=== PATIENT | female | born 1950 | race Caucasian/White ===

== ENCOUNTER 2022-11-10 20:54 | Emergency (ER) | payer MEDICARE, SELFPAY ==
--- NOTE | 2022-11-10 20:55 | XRR_ITS ---
PROCEDURE INFORMATION: Exam: XR Chest Exam date and time: 11/10/2022 8:18 PM Age: 72 years old Clinical indication: Pain; Chest pressure; Additional info: Cp TECHNIQUE: Imaging protocol: Radiologic exam of the chest. Views: 1 view. COMPARISON: CR XR chest 1V [id number] 10/19/2016 12:03 AM FINDINGS: Lungs: Unremarkable. No consolidation. Pleural spaces: Unremarkable. No pleural effusion. No pneumothorax. Heart/Mediastinum: Unremarkable. No cardiomegaly. Bones/joints: Unremarkable. XR/XR chest 1V portable [id number] IMPRESSION: No acute findings.
--- NOTE | 2022-11-10 21:07 | ECG_ITS ---
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 Measurements Intervals [place] Rate: 68 P: 66 DC: 164 QRS: 32 QRSD: 86 T: 45 QT: 417 QTc: 444 Interpretive Statements SINUS RHYTHM WITH OCCASIONAL VENTRICULAR PREMATURE COMPLEXES Compared to ECG 10/19/2016 00:07:44 Ventricular premature complex(es) now present Sinus bradycardia no longer present Electronically Signed On 11-11-2022 4:16:29 CDT by Esther Britt M.D. [id number]
[2022-11-10 21:09] VITALS: BP 157/79; PULSE 66; RESP 14; TEMP 36.7; O2SAT 97; BMI 36.1
[2022-11-10 21:27] VITALS: BP 166/77; PULSE 65; RESP 20; O2SAT 97
[2022-11-10 21:32] LABS: Basophils # 0.1 10^3/uL (0.0-0.1); Basophils % 0.7 %; Eosinophils # 0.4 10^3/uL (0.0-0.8); Eosinophils % 2.8 %; Hematocrit 48.4 % (37.0-47.0); Hemoglobin 15.7 g/dL (11.5-15.3); Lymphocytes # 1.5 10^3/uL (0.8-4.8); Lymphocytes % 10.9 %; Mean Corpuscular HGB Conc 32.4 g/dL (30.0-36.0); Mean Corpuscular Hemoglobin 28.7 pg (28.0-34.0); Mean Corpuscular Volume 88.5 fl (81-99); Mean Platelet Volume 12.3 fL (7.4-10.4); Monocytes # 0.9 10^3/uL (0.2-0.9); Monocytes % 6.7 %; Neutrophils # 10.94 10^3/uL (1.8-7.7); Neutrophils % 78.3 %; Nucleated Red Blood Cells % 0 %; Platelet Count 274 10^3/cmm (130-400); Red Blood Count 5.47 10^6/uL (4.1-5.3); Red Cell Distribution Width 13.3 % (12.1-15.1)
[2022-11-10 21:44] LABS: INR 0.88 (0.8-1.2)
[2022-11-10 21:45] VITALS: BP 138/109; PULSE 59; RESP 25; O2SAT 94
[2022-11-10 21:48] LABS: Alanine Aminotransferase 15 U/L (0-33); Albumin Level 4.4 g/dL (3.5-5.2); Alkaline Phosphatase 130 U/L (35-105); Anion Gap 18.6 (5-19); Aspartate Amino Transferase 21 U/L (0-32); Blood Urea Nitrogen 12 mg/dL (8-23); Calcium 9.4 mg/dL (8.5-10.5); Carbon Dioxide 25 mmol/L (22-29); Chloride 102 mmol/L (98-107); Globulin 2.4 g/dL (1.3-4.6); Glucose 134 mg/dL (65-115); Lipase 32 U/L (13-60); Osmolality Calculated 294 mOsm/kg (285-295); Potassium 4.6 mmol/L (3.5-5.1); Sodium 141 mmol/L (136-145); Total Bilirubin 0.5 mg/dL (0.15-1.2); Total Protein 6.8 g/dL (6.6-8.7)
[2022-11-10 21:51] LABS: Troponin(5th) Baseline 15 ng/L (0-10)
[2022-11-10 21:56] LABS: Slide Review Slide Review Perform
[2022-11-10 22:18] VITALS: BP 155/77; PULSE 56; RESP 23; O2SAT 96
--- NOTE | 2022-11-10 22:55 | ECG_ITS ---
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 Measurements Intervals [place] Rate: 55 P: 27 [place]: 158 QRS: 29 QRSD: 86 T: 76 QT: 430 QTc: 413 Interpretive Statements SINUS BRADYCARDIA NONSPECIFIC T-WAVE ABNORMALITY Compared to ECG 11/10/2022 21:07:15 T-wave abnormality now present Sinus rhythm no longer present Ventricular premature complex(es) no longer present Electronically Signed On 11-11-2022 4:17:52 CDT by Esther Britt M.D. [id number]
[2022-11-10 23:13] VITALS: BP 153/61; PULSE 56; RESP 25; O2SAT 56
[2022-11-10 23:41] LABS: Troponin 5 2HR 22.77 ng/L (0-10)
[2022-11-10 23:44] LABS: Troponin 5 2HR Delta 7.77 ABS# (0-10)
--- NOTE | 2022-11-11 00:12 | W.ED.CHESTPA ---
HPI - Chest Pain General: Chief Complaint: Chest Pain Stated Complaint: Jaw Pain\Chest Pain Time Seen by Provider: 11/10/22 20:59 History of Present Illness: 72 yo female patient presents to ER with jaw pain and chest pressure that occured prior to arrival lasting 45 minutes. Pt was sitting in chair. Pt denies any chest pain at this time. Pt denies any SOB, n/v/ fever or cough or congestion. Pt states she has hx of a fib but had ablation and been NSR. Pt is not anticoagulated. pt has not had recent stress test. pt is a a current smoker with hx of HTN. Associated symptoms: Deny abdominal pain, diaphoresis, dyspnea, fever(s), nausea, palpitations, syncope or vomiting Review of Systems Const: Denies: fever(s), chills, body aches, change in appetite, change in weight, fatigue, malaise or diaphoresis Eyes: Denies: change in vision, blurry vision, blind spots, photophobia, eye discomfort, eye discharge, eye redness, floaters or seeing flashes ENMT: Denies: throat pain, uvular edema, enlarged tonsils, odynophagia, hoarseness, mouth pain, swelling of lips/tongue, oral sores, bleeding gums, dental pain, dry mouth, ear or mastoid pain, ear discharge, change in hearing, tinnitus, disequilibrium, nasal discharge, nasal congestion, post nasal drip or sinus pain Card: Denies: palpitations, irregular heart rhythm, edema, swelling of feet/ankles, lightheadedness, syncope, pre-syncope, dyspnea on exertion, orthopnea, leg pain with exertion or acrocyanosis Resp: Denies: dyspnea, productive cough, non-productive cough, wheezing, stridor, pain on inspiration, change in phlegm color, hemoptysis or chest congestion GI: Denies: abdominal pain, nausea, vomiting, hematemesis, dysphagia, diarrhea, constipation, GI cramping, change in bowel habits or rectal pain : Denies: flank pain, difficulty voiding, dysuria, urinary frequency, urinary urgency, urinary hesitancy or hematuria Musc: Denies: neck pain, back pain, extremity pain, extremity swelling, joint pain, joint swelling, joint redness, joint warmth or deformity Skin/Breast: Denies: rash, pruritus, erythema, sores, new lesions, changes in skin color or dry skin Neuro: Denies: headache(s), numbness in extremities, weakness in extremities, sensory changes, lack of coordination, difficulty walking, frequent falls, dizziness, vertigo, confusion, behavioral changes, Slurred speech present, difficulty communicating thoughts or seizure-like activity Psych: Denies: anxiety, depression, suicidal ideation or homicidal ideation Endo: Denies: polyuria, polydipsia, tired all the time, cold intolerance, excessive sweating, flushing, hot flashes or heat intolerance Norberto/Lymph: Denies: easy bruising, easy bleeding, petechiae, purpura, enlarged lymph nodes or tender lymph nodes All/Imm: Denies: urticaria, throat swelling, tongue swelling, facial swelling, acute wheezing or itchy eyes Physical Exam Const: COMMON NORMALS: no acute distress, average body habitus, patient oriented x3, no limitations, healthy appearing, alert and well nourished HENMT: COMMON NORMALS: normocephalic, atraumatic, hearing grossly normal bilaterally, external ears normal, EAC's normal, TM's normal bilaterally, Normal external nose present, Normal nasal mucous membranes and turbinates present, moist oral mucous membranes, oropharynx normal, dentition normal and gingiva normal HEAD & SCALP: normocephalic and atraumatic NOSE: Normal external nose present and Normal nasal mucous membranes and turbinates present EXTERNAL EAR: Yes external ears normal EXTERNAL AUDITORY CANAL: EAC's normal TYMPANIC MEMBRANE: TM's normal bilaterally THROAT: no uvular edema Eye: COMMON NORMALS: Equal, round and reactive pupils present and EOMs intact bilaterally PUPIL: Yes Equal, round and reactive pupils present Neck/C-Spine: COMMON NORMALS: full ROM, no lymphadenopathy and no JVD Chest: COMMONS NORMALS: normal inspection of the chest and normal palpation of entire chest wall Resp: COMMON NORMALS: normal respiratory effort, No retractions, No use of accessory muscles and clear to auscultation bilaterally AUSCULTATION: clear to auscultation bilaterally Cardio: COMMON NORMALS: no JVD, regular rate and regular rhythm RATE: regular rate RHYTHM: regular rhythm GI: COMMON NORMALS: Normal to inspection, nondistended, normoactive bowel sounds present, Soft to palpation and non-tender PALPATION: Yes Soft to palpation : COMMON NORMALS: Yes no CVA tenderness BLADDER/KIDNEY EXAM: Yes no CVA tenderness Back/Pelvis: COMMON NORMALS: no CVA tenderness, thoracic and lumbar spine normal to inspection, no thoracic nor lumbar tenderness and thoraco-lumbar ROM normal Extremity: COMMON NORMALS: normal to inspection and full ROM Neuro: COMMON NORMALS: patient oriented x3, CN's II-XII intact bilaterally, moves all extremities, no focal motor deficits and no sensory deficits noted SENSORIUM/ORIENTATION: Yes alert Psych: COMMON NORMALS: mental status grossly normal, Normal thought process present, cooperative, normal affect, speech normal, activity/motor behavior normal, denies homicidal ideation and denies suicidal ideation SPEECH: Yes normal speech THOUGHT PROCESS: Normal thought process present Skin: COMMON NORMALS: no rashes or lesions noted GENERAL SKIN EXAM: no rashes or lesions noted and elasticity normal Course Vital Signs: Vital signs: Vital Signs Temperature 98.1 F 11/10/22 21:09 Pulse Rate 56 L 11/10/22 23:13 Respiratory Rate 25 H 11/10/22 23:13 Blood Pressure 153/61 11/10/22 23:13 Pulse Oximetry 56 L 11/10/22 23:13 Oxygen Delivery Me thod Room Air 11/10/22 23:13 MDM - Chest Pain Medical Decision Making Patient is well appearing non toxic and in no acute distress. 72 yo female patient presents to ER with jaw pain and chest pressure that occured prior to arrival lasting 45 minutes. Pt was sitting in chair. Pt denies any chest pain at this time. Pt denies any SOB, n/ v/ fever or cough or congestion. Pt states she has hx of a fib but had ablation and been NSR. Pt is not anticoagulated. pt has not had recent stress test. pt is a a current smoker with hx of HTN. Labs do not reveal any concrning findings. Delta trop is WNL EKG reveals no st elevation or depression noted. Pt is in SR. Chest xray is with no acute findings. Given patients age and risk factors I did recommend chest pain obs admission. Pt states she does not want to come in. Pt states she wants to go home. I explained the risk to aptient and she understands and states she sees her PCP tomorrow and will have hi schedule her a stress test. I offered to schedule outpatient stress test and patient states [facility]is [facility] and has care there and wants her pcp to set this up. I discussed close return precautions with patient. 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 Lab Data 11/10/22 21:22 11/10/22 21:22 Radiology Impressions Chest X-Ray 11/10/22 20:55 IMPRESSION: No acute findings. Laboratory Results WBC 14.0 10^3/uL (4.0-10.0) H 11/10/22 21:22 RBC 5.47 10^6/uL (4.1-5.3) H 11/10/22 21:22 Hgb 15.7 g/dL (11.5-15.3) H 11/10/22 21:22 Hct 48.4 % (37.0-47.0) H 11/10/22 21:22 MCV 88.5 fl (81-99) 11/10/22 21:22 MCH 28.7 pg (28.0-34.0) 11/10/22 21:22 MCHC 32.4 g/dL (30.0-36.0) 11/10/22 21:22 RDW 13.3 % (12.1-15.1) 11/10/22 21:22 Plt Count 274 10^3/cmm (130-400) 11/10/22 21:22 MPV 12.3 fL (7.4-10.4) H 11/10/22 21:22 Neut % (Auto) 78.3 % 11/10/22 21:22 Lymph % (Auto) 10.9 % 11/10/22 21:22 [place] % (Auto) 6.7 % 11/10/22 21:22 Eos % (Auto) 2.8 % 11/10/22 21:22 Baso % (Auto) 0.7 % 11/10/22 21:22 Neut # (Auto) 10.94 10^3/uL (1.8-7.7) H 11/10/22 21:22 Lymph # (Auto) 1.5 10^3/uL (0.8-4.8) 11/10/22 21:22 [place] # (Auto) 0.9 10^3/uL (0.2-0.9) 11/10/22 21:22 Eos # (Auto) 0.4 10^3/uL (0.0-0.8) 11/10/22 21:22 Baso # (Auto) 0.1 10^3/uL (0.0-0.1) 11/10/22 21:22 Nucleated RBC % (auto) 0 % 11/10/22 21:22 Nucleated RBCs # 0.0 /100WBC 11/10/22 21:22 PT 12.20 SECONDS (12.1-14.9) 11/10/22 21:22 INR 0.88 (0.8-1.2) 11/10/22 21:22 Sodium 141 mmol/L (136-145) 11/10/22 21:22 Potassium 4.6 mmol/L (3.5-5.1) 11/10/22 21:22 Chloride 102 mmol/L (98-107) 11/10/22 21:22 Carbon Dioxide 25 mmol/L (22-29) 11/10/22 21:22 Anion Gap 18.6 (5-19) 11/10/22 21:22 BUN 12 mg/dL (8-23) 11/10/22 21:22 Creatinine 1.6 mg/dL (0.5-0.9) H 11/10/22 21:22 GFR Calculation Not Reportable 11/10/22 21:22 Glucose 134 mg/dL (65-115) H 11/10/22 21:22 Calculated Osmolality 294 mOsm/kg (285-295) 11/10/22 21:22 Calcium 9.4 mg/dL (8.5-10.5) 11/10/22 21:22 Total Bilirubin 0.5 mg/dL (0.15-1.2) 11/10/22 21:22 AST 21 U/L (0-32) 11/10/22 21:22 ALT 15 U/L (0-33) 11/10/22 21:22 Alkaline Phosphatase 130 U/L (35-105) H 11/10/22 21:22 Troponin T Baseline 15 ng/L (0-10) H 11/10/22 21:22 Troponin T 120 Minute 22.77 ng/L (0-10) H 11/10/22 23:12 Delta Troponin T 7.77 ABS# (0-10) 11/10/22 23:12 Total Protein 6.8 g/dL (6.6-8.7) 11/10/22 21:22 Albumin 4.4 g/dL (3.5-5.2) 11/10/22 21:22 Globulin 2.4 g/dL (1.3-4.6) 11/10/22 21:22 Lipase 32 U/L (13-60) 11/10/22 21:22 Discharge Plan Discharge Condition: Stable Referrals: Inocente June [Primary Care Provider] - Coding Level of Care Code ED Tent Assembler for Christopherg Jake
[2022-11-11 00:39] VITALS: BP 130/79; PULSE 64; RESP 18; O2SAT 95
[2022-11-11 00:40] VITALS: BP 130/79; PULSE 59; RESP 18; O2SAT 95
== END 2022-11-11 00:47 | disposition home or self-care (01) ==
PROVIDERS: Emergency Medicine; Emergency Provider Registered Nurse; PCP Family Medicine
DX: R07.89 Other chest pain (principal)
CPT/HCPCS: 71045; 80053; 83690; 84484; 85025; 85610; 93005; 99285

== ENCOUNTER 2023-02-22 16:35 | Observation (INO) | payer MEDICARE, SELFPAY ==
[2023-02-22] VITALS (83 sets, daily range): BP systolic 135–248; BP diastolic 49–137; PULSE 52–127; RESP 9–26; TEMP 37; O2SAT 90–98; BMI 36.5
--- NOTE | 2023-02-22 17:05 | CTR_ITS ---
PROCEDURE INFORMATION: Exam: CT Head Without Contrast Exam date and time: 02/22/2023 5:26 PM Age: 72 years old Clinical indication: Pain; Headache; Additional info: Severe headache TECHNIQUE: Imaging protocol: Computed tomography of the head without contrast. Radiation optimization: All CT scans at this facility use at least one of these dose optimization techniques: automated exposure control; mA and/or kV adjustment per patient size (includes targeted exams where dose is matched to clinical indication); or iterative reconstruction. REPORTING DATA: Count of CT and Cardiac NM exams in prior 12 months: This patient has received 0 known CTs and 0 known cardiac nuclear medicine studies in the 12 months prior to the current study. COMPARISON: No relevant prior studies available. RADIATION DOSE METRICS: Total DLP (mGy-cm): 1042 FINDINGS: Brain: No midline shift. No mass, acute infarct, hemorrhage, or extra-axial fluid collection. Mild bilateral periventricular and subcortical white matter hypodensities are present compatible with small-vessel ischemic disease. Cerebral ventricles: No ventriculomegaly. Paranasal sinuses: Visualized sinuses are unremarkable. No fluid levels. Mastoid air cells: Visualized mastoid air cells are well aerated. Bones/joints: Unremarkable. No acute fracture. Soft tissues: Unremarkable. Other findings: Mild volume loss. CT/CT head wo con* [id number] IMPRESSION: No acute intracranial abnormality.
[2023-02-22] MEDS: ondansetron 2 mg/ML SDV 2 mL 4 MG IVP ×2 (17:12→22:01)
[2023-02-22] MEDS: hyDRALAzine 20 mg/mL INJ 1 mL 5 MG IVP (17:14)
[2023-02-22] MEDS: morphine 4 mg/mL SDV 1 mL IVP (17:15)
[2023-02-22 17:19] LABS: Basophils # 0.1 10^3/uL (0.0-0.1); Basophils % 0.4 %; Eosinophils # 0.2 10^3/uL (0.0-0.8); Eosinophils % 1.1 %; Hematocrit 45.1 % (36-47); Lymphocytes % 7.2 %; Mean Corpuscular Hemoglobin 29.2 pg (27-33); Mean Corpuscular Volume 88.4 fl (85-98); Mean Platelet Volume 12.8 fL (7.4-10.4); Monocytes # 0.8 10^3/uL (0.2-0.9); Monocytes % 5.6 %; Neutrophils # 11.63 10^3/uL (1.8-7.7); Neutrophils % 85.1 %; Nucleated Red Blood Cells % 0 %; Platelet Count 187 10^3/cmm (157-399); Red Cell Distribution Width 13.2 % (12.1-15.1); White Blood Count 13.66 10^3/uL (3.29-11.43)
[2023-02-22 17:28] LABS: INR 0.89 (0.8-1.2)
[2023-02-22 17:29] LABS: Partial Thromboplastin Time 32.7 SECONDS (23.9-36.7)
[2023-02-22 17:33] LABS: Alanine Aminotransferase 10 U/L (0-33); Albumin Level 4.3 g/dL (3.5-5.2); Alkaline Phosphatase 109 U/L (35-105); Blood Urea Nitrogen 11 mg/dL (8-23); Calcium 9.7 mg/dL (8.5-10.5); Carbon Dioxide 26 mmol/L (22-29); Chloride 99 mmol/L (98-107); Globulin 3.5 g/dL (1.3-4.6); Glucose 126 mg/dL (65-115); Osmolality Calculated 287 mOsm/kg (285-295); Sodium 138 mmol/L (136-145); Total Bilirubin 0.5 mg/dL (0.15-1.2); Total Protein 7.8 g/dL (6.6-8.7)
[2023-02-22 17:35] LABS: Anion Gap 17.5 (5-19); Aspartate Amino Transferase 21 U/L (0-32); Potassium 4.5 mmol/L (3.5-5.1)
--- NOTE | 2023-02-22 17:40 | W.ED.HA ---
HPI - Headache General: Chief Complaint: Headache Stated Complaint: headahce, high bp Time Seen by Provider: 02/22/23 16:43 History of Present Illness: 72-year-old female presents emergency room with severe headache that started few hours ago. Patient described the headache as throbbing sensation mostly on the left side of her head with severity of 8 out of 10. Patient with some nausea but no vomiting. Patient reviews having one of the parts headache of her life. Upon present emergency room, patient denies any fall or head injury. Has any numbness or tingling. Patient is having some nausea but no vomiting. Patient denies any change in speech. 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 Pertinent past history: hypertension Location: left and parietal Severity: severe Exacerbating factors: none Relieving factors: nothing Associated symptoms: Reports nausea and vomiting; Deny chest pain, confusion or fever(s) Review of Systems General: Reports: 10 or more systems reviewed and unremarkable except in HPI and below Const: Denies: fever(s) or chills Card: Denies: chest pain, palpitations or irregular heart rhythm Resp: Denies: dyspnea, productive cough, non-productive cough or wheezing GI: Reports: nausea and vomiting; Denies: heartburn, early satiety, diarrhea, constipation, bloating, GI cramping, excessive flatus or fecal incontinence Musc: Denies: neck pain, back pain, extremity pain, extremity swelling, joint pain, joint swelling, joint redness or joint warmth Neuro: Reports: headache(s); Denies: numbness in extremities, weakness in extremities, sensory changes, lack of coordination, difficulty walking, frequent falls, dizziness, vertigo, confusion, behavioral changes or Slurred speech present Physical Exam Const: COMMON NORMALS: no acute distress, average body habitus, patient oriented x3, no limitations, healthy appearing, alert and well nourished HENMT: COMMON NORMALS: normocephalic, atraumatic, hearing grossly normal bilaterally, external ears normal, EAC's normal, TM's normal bilaterally, Normal external nose present, Normal nasal mucous membranes and turbinates present, moist oral mucous membranes, oropharynx normal, dentition normal and gingiva normal HEAD & SCALP: normocephalic and atraumatic NOSE: Normal external nose present and Normal nasal mucous membranes and turbinates present EXTERNAL EAR: Yes external ears normal EXTERNAL AUDITORY CANAL: EAC's normal TYMPANIC MEMBRANE: TM's normal bilaterally Eye: COMMON NORMALS: conjunctivae normal GENERAL EYE: other (Complete blindness) VISUAL AVELAR: Yes other (Complete vision loss chronically) EYELID: eyelids normal CONJUNCTIVA: Yes conjunctivae normal Neck/C-Spine: COMMON NORMALS: no meningeal signs and no JVD Chest: COMMONS NORMALS: normal inspection of the chest, normal palpation of entire chest wall, normal inspection of the breasts and normal palpation of the breasts CHEST: No abnormal inspection of the chest Breast/axilla inspection: Yes normal inspection of the breasts BREAST/AXILLA PALPATION: Yes normal palpation of the breasts Resp: COMMON NORMALS: normal respiratory effort, No retractions, No use of accessory muscles, clear to auscultation bilaterally and percussion normal EFFORT & INSPECTION: Yes able to speak in complete sentences AUSCULTATION: clear to auscultation bilaterally PERCUSSION: percussion normal Cardio: COMMON NORMALS: no JVD, regular rate, regular rhythm, S1 normal heart sound present, S2 normal heart sound present, No gallops present (Cardio), No clicks present (Cardio), No murmurs present (Cardio), No rub (Cardio) and Peripheral pulses 2+ throughout RATE: regular rate RHYTHM: regular rhythm HEART SOUNDS: S1 normal heart sound present and S2 normal heart sound present PERIPHERAL PULSES: Peripheral pulses 2+ throughout : COMMON NORMALS: Yes no CVA tenderness BLADDER/KIDNEY EXAM: Yes no CVA tenderness Back/Pelvis: COMMON NORMALS: no CVA tenderness, thoracic and lumbar spine normal to inspection, no thoracic nor lumbar tenderness, thoraco-lumbar ROM normal and straight leg raise negative bilaterally Extremity: COMMON NORMALS: normal to inspection, full ROM, capillary refill normal, no joint enlargement, no clubbing, cyanosis or edema, no calf tenderness and no pedal edema Neuro: CHRIS COMA SCALE: document GCS findings Chris coma scale eye opening: Spontaneous [place] coma scale verbal response: Orientated [place] coma scale motor response: Obey commands Chris coma scale total score: 15 COMMON NORMALS: patient oriented x3 SENSORIUM/ORIENTATION: Yes alert MENINGEAL SIGNS: Yes no meningeal signs CRANIAL NERVES: Yes CN normal except as noted COORDINATION/BALANCE: [id number] test normal SPEECH: speech normal SENSORY EXAM: No sensory level loss detected MOTOR EXAM: 5/5 motor strength present throughout COORDINATION: [id number] test normal Skin: COMMON NORMALS: no rashes or lesions noted, no wounds, turgor normal, no jaundice, no petechiae and no mottling GENERAL SKIN EXAM: no rashes or lesions noted and turgor normal Course Consultations: Consultation #1: Discussed patient with the hospitalist patient will be admitted for further ration and treatment Vital Signs: Vital signs: Vital Signs Temperature 98.6 F 02/22/23 16:38 Pulse Rate 63 02/22/23 23:04 Respiratory Rate 21 H 02/22/23 21:10 Blood Pressure 158/74 02/22/23 21:00 Pulse Oximetry 95 02/22/23 21:10 Oxygen Delivery Me thod Room Air 02/22/23 21:30 MDM - Headache Medical Decision Making Patient made comfortable emergency room. Patient was given IV pain medication and nausea medication. CT scan, CBC, CMP, EKG and troponin obtained. Discussed CT and lab finding with patient and family. I did offer lumbar puncture for further evaluation but patient declined. I discussed patient with the hospitalist. Patient was started on Cardene drip for blood pressure control. Differential Diagnosis Likely migraine, tension headache, subarachnoid hemorrhage, headache, meningitis, sinusitis and postconcussion syndrome Lab Data 02/22/23 16:53 02/22/23 16:[address] 02/22/23 17:05 IMPRESSION: No acute intracranial abnormality. Laboratory Results WBC 13.66 10^3/uL (3.29-11.43) H 02/22/23 16:53 RBC 5.10 10^6/uL (3.85-5.65) 02/22/23 16:53 Hgb 14.90 g/dL (11.27-16.99) 02/22/23 16:53 Hct 45.1 % (36-47) 02/22/23 16:53 MCV 88.4 fl (85-98) 02/22/23 16:53 MCH 29.2 pg (27-33) 02/22/23 16:53 MCHC 33.0 g/dL (30-55) 02/22/23 16:53 RDW 13.2 % (12.1-15.1) 02/22/23 16:53 Plt Count 187 10^3/cmm (157-399) 02/22/23 16:53 MPV 12.8 fL (7.4-10.4) H 02/22/23 16:53 Neut % (Auto) 85.1 % 02/22/23 16:53 Lymph % (Auto) 7.2 % 02/22/23 16:53 [place] % (Auto) 5.6 % 02/22/23 16:53 Eos % (Auto) 1.1 % 02/22/23 16:53 Baso % (Auto) 0.4 % 02/22/23 16:53 Neut # (Auto) 11.63 10^3/uL (1.8-7.7) H 02/22/23 16:53 Lymph # (Auto) 1.0 10^3/uL (0.8-4.8) 02/22/23 16:53 [place] # (Auto) 0.8 10^3/uL (0.2-0.9) 02/22/23 16:53 Eos # (Auto) 0.2 10^3/uL (0.0-0.8) 02/22/23 16:53 Baso # (Auto) 0.1 10^3/uL (0.0-0.1) 02/22/23 16:53 Nucleated RBC % (auto) 0 % 02/22/23 16:53 Nucleated RBCs # 0.0 /100WBC 02/22/23 16:53 PT 12.30 SECONDS (12.1-14.9) 02/22/23 16:53 INR 0.89 (0.8-1.2) 02/22/23 16:53 APTT 32.7 SECONDS (23.9-36.7) 02/22/23 16:53 Sodium 138 mmol/L (136-145) 02/22/23 16:53 Potassium 4.5 mmol/L (3.5-5.1) 02/22/23 16:53 Chloride 99 mmol/L (98-107) 02/22/23 16:53 Carbon Dioxide 26 mmol/L (22-29) 02/22/23 16:53 Anion Gap 17.5 (5-19) 02/22/23 16:53 BUN 11 mg/dL (8-23) 02/22/23 16:53 Creatinine 1.0 mg/dL (0.5-0.9) H 02/22/23 16:53 GFR Calculation Not Reportable 02/22/23 16:53 Glucose 126 mg/dL (65-115) H 02/22/23 16:53 Calculated Osmolality 287 mOsm/kg (285-295) 02/22/23 16:53 Calcium 9.7 mg/dL (8.5-10.5) 02/22/23 16:53 Total Bilirubin 0.5 mg/dL (0.15-1.2) 02/22/23 16:53 AST 21 U/L (0-32) 02/22/23 16:53 ALT 10 U/L (0-33) 02/22/23 16:53 Alkaline Phosphatase 109 U/L (35-105) H 02/22/23 16:53 Troponin T Baseline 18 ng/L (0-10) H 02/22/23 20:17 Total Protein 7.8 g/dL (6.6-8.7) 02/22/23 16:53 Albumin 4.3 g/dL (3.5-5.2) 02/22/23 16:53 Globulin 3.5 g/dL (1.3-4.6) 02/22/23 16:53 XR interpretation done by ED provider, pending radiology final review EKG Data EKG 1: Interpretation: Sinus rhythm rate of 64 with AL interval [address] elevation or depression. Patient have a flipped T wave in aVR. Critical Care Time Critical Care Time: Critical Care Time: Yes Total Critical Care Time: 45 Attestation: Time spent discussing patient with the hospitalist and family. Time spent reviewing past medical history. Time spent to reevaluate patient on multiple occasion after treatment. Discharge Plan Discharge Patient Disposition: Admitted As Inpatient Admit Provider: Melida Leon Clinical Impression: Headache, Hypertensive emergency Condition: Stable Discharge Diet: Advance as tolerated Discharge Activity: Resume usual activity Coding Level of Care Code ED Business Continuity Consultant for [place]
[2023-02-22] MEDS: nicardipine 20 MG/200 ML PREMIX 50 MG IV (19:28)
--- NOTE | 2023-02-22 20:05 | ECG_ITS ---
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 Measurements Intervals [place] Rate: 64 P: 58 MD: 161 QRS: 36 QRSD: 81 T: 54 QT: 452 QTc: 469 Interpretive Statements SINUS RHYTHM Compared to ECG 11/10/2022 23:06:06 Sinus bradycardia no longer present T-wave abnormality no longer present Electronically Signed On 02-22-2023 23:18:04 CDT by Homero Nino M.D. [id number]
[2023-02-22 21:07] LABS: Troponin(5th) Baseline 11 ng/L (0-10)
--- NOTE | 2023-02-22 21:39 | PM.HP ---
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 There is no history of fever cold cough chest pain shortness of breath abdominal pain or urinary complaints. She is on p.o. metoprolol 12.5 mg twice a day and lisinopril 10 mg daily at home. There is a history of lone A-fib and PVCs which are currently resolved She is not on any anticoagulation for A-fib Review of Systems Narrative: As per HPI Medications/Allergies Allergies Allergy/AdvReac Type Severity Reaction Status Date / Time amoxicillin [From Augmentin] Allergy ALGY-Hives Verified 11/10/22 21:09 clavulanic acid Allergy ALGY-Hives Verified 11/10/22 21:09 [From Augmentin] Vitals/I&O/Wt Last Vital Signs Temp 98.6 F 02/22/23 16:38 Pulse 70 02/22/23 21:10 Resp 21 H 02/22/23 21:10 BP 158/74 02/22/23 21:00 Pulse Ox 95 02/22/23 21:10 O2 Del Method Room Air 02/22/23 17:18 Weight last 48 hrs Weight 84.822 kg Physical Exam Narrative: She is alert awake oriented x3 pleasant and cooperative legally blind Chest clear to auscultation bilaterally Cardiovascular normal heart sounds no murmurs Abdomen NAD Extremities no edema noted bilaterally Data 02/22/23 16:53 02/22/23 16:53 CT Head: Radiologist's impression: No acute findings EKG 1: My Interpretation: Normal sinus rhythm Normal axis No acute ST-T changes A&P Assessment and plan (1) Hypertensive urgency: (2) Headache: Plan 72 year old female with history of hypertension hypothyroidism lone A-fib 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 Hypertensive urgency- She received 2 doses of IV hydralazine 10 and 5 mg with no relief and hence was started on Cardene drip in the ER. She admits to taking her medications regularly at home. She last visited PCP was 1 month ago. Her home blood pressure usually stays in 140-150. We will continue Cardizem drip for now, taper as needed Start p.o. amlodipine 10 mg daily, first dose now P.o. hydralazine 25 mg 3 times daily, hold if blood pressure less than 130/80. Resume p.o. metoprolol and lisinopril as per home medications. Will follow-up troponins IV Pepcid 20 mg twice a day for stress ulcer prophylaxis Subcutaneous Lovenox 40 mg daily for DVT prophylaxis She is DNR/DNI. Explained in details about the advance directives and patient refuse to be resuscitated with CPR and mechanical ventilation. Attestations Medical Necessity Statement*: She might need 2 days of hospitalization for management of hypertensive urgency requiring ICU admission. Time Spent in Patient Care: 30 minutes Coding Level of Care Code Acute Code for [facility] Fwd Diagnoses Hypertensive urgency I16.0 Headache R51.9 Time Spent (min) 30
[2023-02-22] MEDS: famotidine 20 mg/2 mL INJ IVP (22:27)
[2023-02-22] MEDS: enoxaparin 40 mg/0.4 mL Syringe SUBCUT (22:27)
[2023-02-22 22:56] LABS: Troponin(5th) Baseline 18 ng/L (0-10)
[2023-02-22 23:04] LABS: Troponin 5 2HR 16.72 ng/L (0-10); Troponin 5 2HR Delta -1.28 ABS# (0-10)
[2023-02-23] VITALS (86 sets, daily range): BP systolic 88–171; BP diastolic 33–77; PULSE 51–79; RESP 14–24; TEMP 36.3–36.9; O2SAT 90–98
[2023-02-23] MEDS: nicardipine 20 MG/200 ML PREMIX 50 MG IV (00:11)
[2023-02-23] MEDS: acetaminophen 325 mg Tablet 650 MG PO (00:14)
[2023-02-23 04:58] LABS: Basophils % 0.2 %; Eosinophils % 0.1 %; Hematocrit 39.7 % (36-47); Lymphocytes # 1.1 10^3/uL (0.8-4.8); Lymphocytes % 8.8 %; Mean Corpuscular HGB Conc 32.2 g/dL (30-55); Mean Corpuscular Hemoglobin 28.7 pg (27-33); Mean Platelet Volume 13.5 fL (7.4-10.4); Monocytes # 0.8 10^3/uL (0.2-0.9); Monocytes % 6.2 %; Neutrophils # 10.23 10^3/uL (1.8-7.7); Neutrophils % 84.3 %; Nucleated Red Blood Cells % 0 %; Platelet Count 221 10^3/cmm (157-399); Red Blood Count 4.46 10^6/uL (3.85-5.65); Red Cell Distribution Width 13.2 % (12.1-15.1); White Blood Count 12.13 10^3/uL (3.29-11.43)
[2023-02-23] MEDS: levothyroxine 25 mcg Tablet 37.5 MCG PO (05:18)
[2023-02-23 05:25] LABS: Alanine Aminotransferase 9 U/L (0-33); Albumin Level 3.6 g/dL (3.5-5.2); Alkaline Phosphatase 87 U/L (35-105); Aspartate Amino Transferase 13 U/L (0-32); Blood Urea Nitrogen 15 mg/dL (8-23); Calcium 9.1 mg/dL (8.5-10.5); Carbon Dioxide 27 mmol/L (22-29); Chloride 102 mmol/L (98-107); Globulin 2.8 g/dL (1.3-4.6); Glucose 104 mg/dL (65-115); Magnesium 1.9 mg/dL (1.7-2.3); Osmolality Calculated 287 mOsm/kg (285-295); Sodium 138 mmol/L (136-145); Thyroid Stimulating Hormone 0.42 uIU/mL (0.27-4.20); Total Bilirubin 0.4 mg/dL (0.15-1.2); Total Protein 6.4 g/dL (6.6-8.7)
[2023-02-23 05:26] LABS: NT Pro B Type Natriuretic Pept 2139 pg/mL (0-125)
--- NOTE | 2023-02-23 07:33 | PC.NURSE ---
06Huber Did bedside report with Imani, but missed filling out the worklist bedside report form.
--- NOTE | 2023-02-23 07:53 | PC.NURSE ---
0650 Bedside report done, but forgot to chart, Done by Rosa.
[2023-02-23] MEDS: famotidine 20 mg/2 mL INJ IVP (09:05)
[2023-02-23] MEDS: hyDRALAzine 25 mg Tablet PO (09:05)
[2023-02-23] MEDS: amlodipine 10 mg Tablet PO (09:05)
--- NOTE | 2023-02-23 10:26 | P.DS_ITS ---
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 She was admitted to the ICU she was put on Cardene drip for hypertensive urgency. Her drip was turned off within few hours and she was switched to p.o. regimen she received 2 doses of IV hydralazine before Cardene drip, her headache has improved before discharge, blood pressure ranging 145-1 54 systolic millimeter mercury diastolic around 60 mmHg, TSH is normal, patient is not complaining of shortness of breath or chest pain she is euvolemic. Head CT unremarkable. Patient is very pleasant and cooperative Physical Exam Narrative: Nonfocal neuro exam Patient is legally blind Pleasant and cooperative Euvolemic S1, S2 Currently on room air Discharge Data Studies Completed and Pending Completed Studies During Hospitalization Category Date Time Status CT head wo con* [id number] Stat Cat Scan 02/22/23 17:05 Completed Radiology Impressions Head CT 02/22/23 17:05 IMPRESSION: No acute intracranial abnormality. Laboratory Results WBC 12.13 10^3/uL (3.29-11.43) H 02/23/23 03:37 RBC 4.46 10^6/uL (3.85-5.65) 02/23/23 03:37 Hgb 12.80 g/dL (11.27-16.99) 02/23/23 03:37 Hct 39.7 % (36-47) 02/23/23 03:37 MCV 89.0 fl (85-98) 02/23/23 03:37 MCH 28.7 pg (27-33) 02/23/23 03:37 MCHC 32.2 g/dL (30-55) 02/23/23 03:37 RDW 13.2 % (12.1-15.1) 02/23/23 03:37 Plt Count 221 10^3/cmm (157-399) 02/23/23 03:37 MPV 13.5 fL (7.4-10.4) H 02/23/23 03:37 Neut % (Auto) 84.3 % 02/23/23 03:37 Lymph % (Auto) 8.8 % 02/23/23 03:37 [place] % (Auto) 6.2 % 02/23/23 03:37 Eos % (Auto) 0.1 % 02/23/23 03:37 Baso % (Auto) 0.2 % 02/23/23 03:37 Neut # (Auto) . 10^3/uL (1.8-7.7) H 02/23/23 03:37 Lymph # (Auto) 1.1 10^3/uL (0.8-4.8) 02/23/23 03:37 [place] # (Auto) 0.8 10^3/uL (0.2-0.9) 02/23/23 03:37 Eos # (Auto) 0.0 10^3/uL (0.0-0.8) 02/23/23 03:37 Baso # (Auto) 0.0 10^3/uL (0.0-0.1) 02/23/23 03:37 Nucleated RBC % (auto) 0 % 02/23/23 03:37 Nucleated RBCs # 0.0 /100WBC 02/23/23 03:37 PT 12.30 SECONDS (12.1-14.9) 02/22/23 16:53 INR 0.89 (0.8-1.2) 02/22/23 16:53 APTT 32.7 SECONDS (23.9-36.7) 02/22/23 16:53 Sodium 138 mmol/L (136-145) 02/23/23 03:37 Potassium 4.0 mmol/L (3.5-5.1) 02/23/23 03:37 Chloride 102 mmol/L (98-107) 02/23/23 03:37 Carbon Dioxide 27 mmol/L (22-29) 02/23/23 03:37 Anion Gap 13.0 (5-19) 02/23/23 03:37 BUN 15 mg/dL (8-23) 02/23/23 03:37 Creatinine 1.3 mg/dL (0.5-0.9) H 02/23/23 03:37 GFR Calculation Not Reportable 02/23/23 03:37 Glucose 104 mg/dL (65-115) 02/23/23 03:37 Calculated Osmolality 287 mOsm/kg (285-295) 02/23/23 03:37 Calcium 9.1 mg/dL (8.5-10.5) 02/23/23 03:37 Phosphorus 3.0 mg/dL (2.5-4.5) 02/23/23 03:37 Magnesium 1.9 mg/dL (1.7-2.3) 02/23/23 03:37 Total Bilirubin 0.4 mg/dL (0.15-1.2) 02/23/23 03:37 AST 13 U/L (0-32) 02/23/23 03:37 ALT 9 U/L (0-33) 02/23/23 03:37 Alkaline Phosphatase 87 U/L (35-105) 02/23/23 03:37 Troponin T Baseline 18 ng/L (0-10) H 02/22/23 20:17 Troponin T 120 Minute 16.72 ng/L (0-10) H 02/22/23 22:41 Delta Troponin T -1.28 ABS# (0-10) L 02/22/23 22:41 NT-Pro-B Natriuret Pep 2139 pg/mL (0-125) H 02/23/23 03:37 Total Protein 6.4 g/dL (6.6-8.7) L 02/23/23 03:37 Albumin 3.6 g/dL (3.5-5.2) 02/23/23 03:37 Globulin 2.8 g/dL (1.3-4.6) 02/23/23 03:37 TSH 0.42 uIU/mL (0.27-4.20) 02/23/23 03:37 Vitals Last Vital Signs Temp 98.4 F 02/23/23 10:06 Pulse 76 02/23/23 08:45 Resp 21 H 02/23/23 08:45 BP 154/61 02/23/23 08:45 Pulse Ox 96 02/23/23 08:45 O2 Del Method Room Air 02/22/23 21:30 Discharge Plan Discharge Patient Disposition: Home Condition: Stable Prescriptions: New chlorthalidone 25 mg tablet 25 mg PO DAILY Qty: 60 3RF amlodipine 10 mg tablet 10 mg PO DAILY Qty: 60 0RF Continued levothyroxine 137 mcg tablet 137 mcg PO QPM Aspir-81 81 mg Tablet,Delayed Release (Dr/Ec) 81 mg PO QPM simvastatin 40 mg tablet 40 mg PO QPM Nyamyc 100,000 unit/gram powder 1 applic TOPICAL BID CoQ-10 100 mg Capsule 100 mg PO QPM Vitamin D3 50 mcg (2,000 unit) Capsule 50 mcg PO QPM lisinopril 40 mg tablet 40 mg PO QPM Qty: 60 0RF metoprolol tartrate 25 mg tablet 12.5 mg PO QPM Qty: 60 0RF Discharge Orders: Discharge Order (Routine); Ordered 02/23/23 Ordered By: Louie Branham Referrals: Inocente June [Primary Care Provider] - 4-7 days Discharge Diet: Cardiac Discharge Activity: Resume usual activity Patient Instructions: Opioid Safety Activity Restrictions/Additional Instructions: I have added chlorthalidone and amlodipine on top of your metoprolol and lisinopril please maintain a blood pressure log and show it to your primary care physician in case PCP needs to tweak your medications again Discharge Attestations Time Spent in Discharge Care*: greater than 30 min Quality Metrics Clinical Quality Measures [ No reported AMI, CVA or VTE this stay] Coding Level of Care Code Acute Code for [facility] Fwd Diagnoses Hypertensive urgency I16.0 Headache R51.9
[2023-02-23] MEDS: metoprolol tartrate 25 mg Tablet 12.5 MG PO (11:25)
[2023-02-23] MEDS: lisinopril 20 mg Tablet 40 MG PO (11:25)
--- NOTE | 2023-02-23 12:59 | PC.NURSE ---
1250 Ate lunch well. at bedside for discharge. To bathroom to void. Back to edge of bed. Discharge instructions given to patient and . 1300 Back to lying in bed due to c/o of slight nausea and feeling very warm. Connected back to monitor and relax back in bed and watch for a little longer. at bedside.
[2023-02-23] MEDS: ondansetron 2 mg/ML SDV 2 mL 4 MG IVP (14:33)
--- NOTE | 2023-02-23 14:48 | ECG_ITS ---
[facility] Test Date: 2023-02-23 Pat Name: Jhoana Smith Department: Room: [facility] Gender: Female Invasive Cardiovascular Technologist: : 1950 Requested By: Louie Branham Order Number: [id number] Sawyer MD: Esther Britt M.D. Measurements Intervals [place] Rate: 58 P: 0 SC: 0 QRS: 56 QRSD: 90 T: 54 QT: 521 QTc: 512 Interpretive Statements SUPRAVENTRICULAR BRADYCARDIA PROLONGED QT INTERVAL CRITICAL TEST RESULT Compared to ECG 02/22/2023 20:16:12 Prolonged QT interval now present Sinus rhythm no longer present Electronically Signed On 02-23-2023 15:23:29 CDT by Esther Britt M.D. [id number]
--- NOTE | 2023-02-23 15:00 | PC.NURSE ---
[address] Branham of patients c/o nausea and light headedness, i did orthostatic blood pressures, then as ordered gave a dose of Zofran for nausea and did an EKG. Notified of nausea relieved and EKG done.
--- NOTE | 2023-02-23 15:26 | PC.NURSE ---
1916 Dr. Branham says ok to go ahead and discharge now that EKG is completed and nausea is gone. Patient says shes ready to go home. D/c'd iv in right wrist/hand area and pressure dressing applied with no bleeding. Took patient out to family pickup via wheelchair, no further c/o's Discharge paperwork sent with patient.
== END 2023-02-23 15:20 | disposition home or self-care (01) ==
LOC: ER 20:22 → ICU 21:40
PROVIDERS: Admitting Provider Internal Medicine; Emergency Provider Family Medicine; PCP Family Medicine; Visit Provider Internal Medicine
DX: I16.0 Hypertensive urgency (principal); R51.9 Headache, unspecified; E03.9 Hypothyroidism, unspecified
CPT/HCPCS: 36415; 70450; 80053; 83735; 83880; 84100; 84443; 84484; 85025; 85610; 85730; 93005; 96365; 96366; 96372; 96375; 96376; 99291; G0378; J0360; J1650; J2270; J2405; J3490